=== PATIENT | male | born 1985 | race Caucasian/White ===

== ENCOUNTER 2018-12-30 10:06 | Emergency (ER) | payer OTHER ==
--- NOTE | 2018-12-30 13:34 | RAD ---
EXAM DESCRIPTION: Chest,1 View CLINICAL HISTORY: 33 years Male, coughing/vomiting blood COMPARISON: None. TECHNIQUE: AP portable chest. FINDINGS: Heart size is normal with normal pulmonary vascularity. NG tube courses through the esophagus to the stomach. Endotracheal tube is not identified. No consolidating infiltrate. No pulmonary mass or worrisome nodule. No pneumothorax or pleural effusion. Bones are unremarkable. IMPRESSION: NG tube tip in the stomach. Clear chest. Electronically signed by: Merritt Junior MD 12/30/2018 1:32 PM CDT
--- NOTE | 2018-12-30 13:46 | ED.PDOC ---
History of Present Illness - General Chief Complaint: General Stated Complaint: vomitting since this AM and R flank pain Time Seen by Provider: 12/30/18 10:29 Source: patient Exam Limitations: no limitations - History of Present Illness Initial Comments: 33 yo healthy male c/o "spitting up blood" in the shower this morning. He couldn't tell if it was draining from his throat, he was coughing it up or (less likely) he was vomiting. Volume appears to have been less than 10-15 m. It made him gag. No previous episodes, recent illnesses or other symptoms. He drinks a 6 pack a day. No NSAIDs. Timing/Duration: 4-6 hours Severity: mild Improving Factors: nothing Worsening Factors: nothing Associated Symptoms: denies symptoms Allergies/Adverse Reactions: Allergies Camphor [From [employer]icks Vaporub] Allergy (Verified 12/30/18 10:23) Eucalyptus Oil [From [employer]apor[employer]] Allergy (Verified 12/30/18 10:23) Menthol [From [employer]apor[employer]] Allergy (Verified 12/30/18 10:23) Home Medications: Ambulatory Orders NK 12/30/18 Review of Systems - Review of Systems Constitutional: States: no symptoms reported EENTM: States: see HPI Respiratory: States: see HPI Cardiology: States: no symptoms reported Gastrointestinal/Abdominal: States: see HPI Genitourinary: States: no symptoms reported Musculoskeletal: States: no symptoms reported Skin: States: no symptoms reported Neurological: States: anxiety Endocrine: States: no symptoms reported Hematologic/Lymphatic: States: no symptoms reported Past Medical History (General) - Patient Medical History Hx Stroke: No Hx of COPD: No Hx Congestive Heart Failure: No Hx Hypertension: No Hx Diabetes: No Hx Cancer: No Surgical History: other - Vaccination History Hx Tetanus, Diphtheria Vaccination: No Hx Influenza Vaccination: No Hx Pneumococcal Vaccination: No - Social History Hx Tobacco Use: Yes Hx Alcohol Use: Yes Hx Substance Use: Yes Hx Substance Use Treatment: No Hx Depression: No - Female History Patient is a Female of Child Bearing Age (10 -59 yrs old): No Patient : No Family Medical History - Family History Father Family History: Unknown Living Status: Hx Family Cancer: Yes - Liver Hx Family;Other: COPD Physical Exam - Physical Exam General Appearance: Alert, Anxious, Comfortable, No apparent distress Eye Exam: bilateral normal Ears, Nose, Throat: normal ENT inspection Neck: supple Respiratory: lungs clear, normal breath sounds, no respiratory distress Cardiovascular/Chest: regular rate, rhythm, no edema, no murmur Gastrointestinal/Abdominal: non tender, soft, no organomegaly Extremity: normal inspection Neurologic: alert, normal mood/affect, oriented x 3 Skin Exam: normal color, warm/dry Progress - Progress Progress: 12/30/18 13:48 Asymptomatic. No bleeding episodes here. NG return without blood. Etiology of symptoms is unclear. However, I suspect it is not coming from his stomach but will empirically place him on Pepcid & have him go to the clinic for f/u next week. Red flag precautions given. Hemodynamically stable. - Results/Orders Results/Orders: Hgb 15 Plt 250 BUN 21 PT, PTT nml - EKG/XRAY/CT XRAY: chest - no acute process Departure - Departure Clinical Impression: Hemoptysis Time of Disposition: 13:52 Disposition: Discharge to Home or Self Care Condition: Good Departure Forms: ED Discharge - Pt. Copy, Patient Portal Self Enrollment Referrals: Emely Nielsen NP [Nurse Practitioner] - 01/02/19 Home Medications: Ambulatory Orders NK 12/30/18 Comments: Start taking over the counter Pepcid.
[2018-12-30 14:17] VITALS: O2SAT 97
[2018-12-30 14:20] VITALS: BP 132/87
[2018-12-30 14:21] VITALS: TEMP 98
== END 2018-12-30 14:05 | disposition home or self-care (01) ==
LOC: ER 10:06
DX: R04.2 Hemoptysis (principal); Z87.891 Personal history of nicotine dependence
CPT/HCPCS: 36415; 71045; 80053; 85025; 85610; 85730; J2060